=== PATIENT | male | born 1935 | race Caucasian/White ===

== ENCOUNTER 2018-04-16 10:17 | Inpatient (IN) | payer MEDICARE, OTHER ==
[~2018-04-16] VITALS: Ht 177.8 cm; Wt 80.6 kg
[2018-04-16] VITALS (21 sets, daily range): BP systolic 91–162; BP diastolic 47–89; BMI 25.8; BMI 26.9
--- NOTE | ~2018-04-16 | OP ---
PATIENT NAME: SHABANA RODRIGUEZ MEDICAL RECORD: [id number] :37 LOCATION:[facility] ADMISSION DATE:04/16/18 SURGEON: JIL ELLER MD DATE OF OPERATION: 04/16/2018 PROCEDURE: Left heart catheterization, selective coronary angiography, right femoral artery approach. CATHETERS: A 5-S[place] Arabian sheath, 5/4 left and right Rafi, 5/4 pig. The procedure was well tolerated. The patient was returned to the garcía, sheath removed. ExoSeal device placed. FINDINGS: Left ventriculography in 30-degree BAI view: Normal wall motion and normal systolic function. CORONARY ANATOMY: LEFT MAIN: Left main tapers to about 90% plus stenosis. This extends into the LAD and circumflex, both with ostial circumflex and ostial LAD of 90%. RIGHT CORONARY ARTERY: Dominant artery with a small caliber, has about 80% stenosis. IMPRESSION: Critical left main disease, urgent coronary artery bypass grafting. TRANSINT:[id number] Voice Confirmation ID: [id number] DOCUMENT ID: [id number] JIL ELLER MD at 1302 CC: [id number] DICTATION DATE: 04/16/18 1329 BELL ATTENDANT: 04/16/18 1510 [place] [address]
--- NOTE | ~2018-04-16 | MORECARE ---
CASE MANAGEMENT DISCHARGE SUMMARY PATIENT: SHABANA ANDRADE UNIT: [id number] ADM DATE: 04/16/18 AGE: 83 : 36 SEX: M ROOM/BED: [facility] AUTHOR: WALLY,DOC PHYSICIAN: REFERRING PHYSICIAN: JIL ELLER MD DATE OF SERVICE: 04/21/18 Discharge Plan Patient Name: SHABANA ANDRADE Facility: [facility]:Geff : 1935 Planned Disposition: Home Anticipated Discharge Date: Discharge Date: Expected LOS: Initial Reviewer: [email or web address] Initial Review Date: 04/16/2018 Generated: 04/21/18 6:25 pm Comments DCP- Discharge Planning Updated by [email or web address]: Veronica Parra on 04/21/18 4:[address] Patient Name: SHABANA ANDRADE Admission Status: Elective Accout number: [id number] Admission Date: 04-16-2018 : 1935 Admission Diagnosis:ATHSCL HEART DISEASE OF [place] CORONARY ARTERY W/O ANG Attending: JIL ELLER Current LOS: 5 Anticipated DC Date: Planned Disposition: Home Primary Insurance: MEDICARE A & B Discharge Planning Comments: CM met with patient at bedside. Patient plans on going home with his son at discharge. Patient denies any discharge needs at this time. Patient wants to make sure he gets discharge instructions on what he can or not do. CM will continue to follow and assist as needed with discharge planning / needs. Change House Attendant: Veronica Parra DCPIA - Discharge Planning Initial Assessment Updated by [email or web address]: Veronica Parra on 04/21/18 5:12 pm * Is the patient Alert and Oriented? Yes * How many steps to enter\exit or inside your home? * PCP [facility] * Pharmacy [facility] * Preadmission Environment Home Alone * ADLs Independent * Equipment None * List name and contact numbers for known caregivers / representatives who currently or will assist patient after discharge: Jose Francisco Lupe Jacquesnes * Verbal permission to speak to the caregivers and representatives has been obtained from the patient. N/A * Community resources currently utilized None * Additional services required to return to the preadmission environment? No * Can the patient safely return to the preadmission environment? Yes * Has this patient been hospitalized within the prior 30 days at any hospital? No Last DP export: 04/21/18 4:16 Patient Name: SHABANA ANDRADE Page 61412 at 1725 All edits/amendments must be made on the electronic document DICTATION DATE: 04/21/181723 EATING DISORDER SPECIALIST: DECLAN 04/21/181723 RPT#: [id number] DC DATE: STATUS: ADM IN [facility] [address] [place] [address] END OF REPORT
--- NOTE | ~2018-04-16 | HEMODYNAMI ---
PATIENT:SHABANA RODRIGUEZ MEDICAL RECORD: [id number] : 37 LOCATION:[facility] ADMISSION DATE: 04/16/18 Generatedon:04/16/201813:19 Patient name: SHABANA RODRIGUEZ Patient #: [id number] SSN: : Date of study: 04/16/2018 Page: Of Hemodynamic Procedure Report Patient Data Patient Demographics Procedure consent was obtained First Name: SHABANA Gender: Male Last Name: MICHAEL : 1935 Patient #: [id number] Age: 83 year(s) Race: Additional ID: [id number] Contact details [address]: [address] [place] [address] State: [place] City: [place] Zip code: [address] Past Medical History Allergies: No known allergies Admission Admission Data Admission Date: 04/16/2018 Admission Time: 10:17 Height (in.): 40 BSA: 1.3 (m2) Height (cm.): 101.6 BMI: 75.14 (kg/m2) Weight (lbs.): 171 Weight (kg.): 77.56 Lab Results Lab Result Date: 04/16/2018 Lab Result Time: 11:15 Biochemistry Name Units Result Min Max BUN mg/dl 18 --(---*)-- 7 18 Creatinine mg/dl 1.1 --(--*-)-- 0.6 1.3 CBC Name Units Result Min Max Hematocrit % 42.1 --(*---)-- 42 54 Hemoglobin g/dl 13.9 --(*---)-- 13.5 17.5 Procedure Procedure Types Cath Procedure Diagnostic Procedure [facility] w/Coronaries Procedure Description Procedure Date Procedure Date: 04/16/2018 Procedure Start Time: 13:04 Procedure End Time: 13:14 Procedure Staff Name Function Isaac Allred MD Performing Physician Pio Antunez RT Monitor Rona Serrano RT Scrub Jovanny Campos RN Nurse Buffie Cruz RN Desktop Specialist Procedure Data Cath Procedure Fluoroscopy Diagnostic fluoroscopy Total fluoroscopy Time: 1.2 time: 1.2 min min Diagnostic fluoroscopy Total fluoroscopy dose: 353 dose: 353 mGy mGy Contrast Material Contrast Material Type Amount (ml) Isovue 300 48 Entry Location Entry Primary Successful Side Size Upsize Upsize Entry Closure Succes sful Closure Location (Fr) 1 (Fr) 2 (Fr) Remarks Device Remarks Femoral Right 5 Fr Exoseal artery Estimated blood loss: 5 ml Diagnostic catheters Device Type Used For End Catheter Placement MULTIPACK JL 4.0 5Fr Procedure catheter MULTIPACK 3DRC 5Fr Procedure catheter MULTIPACK Pigtail 5 Fr Procedure catheter Procedure Complications No complications Procedure Medications Medication Administration Route Dosage 0.9% NaCl I.V. 100 ml/hr Oxygen etCO2 Nasal cannula 2 l/min Heparin Flush Bag added to field 2 bags (1000units/500ml NS) Lidocaine 2% added to field 20 Benadryl I.V. 50 mg Versed I.V. 2 mg Fentanyl I.V. 100 mcg Heparin Bolus I.V. 5000 units Heparin Drip I.V. drip 1000 units/hr (09731kfsqf/250 D5W) Hemodynamics Rest BSA: 1.3 (m2) HGB: 13.9 (g/dl) O2 Consumption: Estimated: 149.68 (ml/min) O2 Con sumption indexed: Estimated:115.14 (ml/min/m) Heart Rate: 73 (bpm) Pressure Samples Time Site Value (mmHg) Purpose Heart Use Rate(bpm) 13:09 LV 138/8,14 Snapshot 78 13:10 AO 130/59(89) Pullback 77 13:10 LV 138/11,15 Pullback 77 Gradients Valve Time Site 1 Site 2 Mean SEP/DFP Peak To Heart Use (mmHg) (sec/min) Peak Rate (mmHg) (bpm) Aortic 13:10 LV AO 9 21 8 77 138/11,15 130/59(89) Calculations Valve P-P Mean Valve Index Valve Source Name Gradient Area Flow (cm2) Aortic 8 9 8 9 Snapshots Pre Cath Intra NCS Post Cath Vital Signs Time Heart Resp SPO2 etCO2 NIBP Rhythm Pain Sedation Rate (ipm) (%) (mmHg) (mmHg) Status Level (bpm) 13:01:04 69 19 98 42.1 103/73(86) NSR 0 (11) 10(A) , No pain 13:05:57 71 18 99 42.1 124/79(92) NSR 0 (11) 10(A) , No pain 13:10:04 76 18 98 44.4 113/73(84) NSR 0 (11) 9(A) , No pain Medications Time Medication Route Dose Verified Delivered Reason No mila Effectiveness by by 12:54:56 0.9% NaCl I.V. 100 Jovanny Jovanny Per physician ml/hr Andres Campos RN RN 12:55:05 Oxygen etCO2 2 l/min Jovanny Jovanny Per physician Nasal Andres Campos cannula RN RN 12:55:20 Heparin Flush added 2 bags Jovanny Jovanny used for Bag to Andres Campos procedure (1000units/500ml field RN RN NS) 12:55:31 Lidocaine 2% added 20ml Jovanny Jovanny for local to vial Andres Campos anesthetic RN RN 13:02:55 Benadryl I.V. 50 mg Jovanny Jovanny Per physician Andres Campos RN RN 13:03:03 Versed I.V. 2 mg Jovanny Jovanny for sedation Andres Campos RN RN 13:03:10 Fentanyl I.V. 100 mcg Jovanny Jovanny for sedation Andres Campos RN RN 13:15:45 Heparin Bolus I.V. 5000 Jovanny Jovanny for units Pauigan Andres anticoagulation RN RN 13:16:23 Heparin Drip I.V. 1,000 Jovanny Jovanny for (78386hapcn/250 drip units/hr Lorigan Andres anticoagulation D5W) RN pipe fitter maintenance Log Time Note 12:33:58 Signed procedure consent form obtained from patient. 12:34:00 Diagnostic Cath status Elective 12:34:01 Time tracking: Regular hours (M-F 7:00 - 5:00) 12:34:04 Plan of Care:Hemodynamics will remain stable., Cardiac rhythm will remain stable., Comfort level will be maintained., Respiratory function will remain adequate., Patient/ family verbilizes understanding of procedure., Procedure tolerated without complication., Recovers from procedure without complications.. 12:35:15 H&P Date Dictated: 04/13/2018 Within 30 days and on chart., H&P Addendum completed by physician on day of procedure. (MUST COMPLETE FOR ALL OUTPATIENTS). 12:35:31 Patient Height : 40 inches 12:35:33 Patient Weight : 171 lbs 12:35:42 Patient allergic to No known allergies 12:39:06 Martha Cruz RN sent for patient. Start room use. 12:44:11 Patient received from Pre/Post Procedure Room to CCL 2 Alert and oriented. Tansferred to table in Supine position. 12:44:12 Warm blankets applied, and charles hugger turned on for patient comfort. 12:44:12 Correct patient and procedure confirmed by team. 12:44:13 ECG and BP/O2 sat monitors applied to patient. 12:54:56 0.9% NaCl 100 ml/hr I.V. was administered by Jovanny Campos RN; Per physician; 12:55:05 Oxygen 2 l/min etCO2 Nasal cannula was administered by Jovanny Campos RN; Per physician; 12:55:20 Heparin Flush Bag (1000units/500ml NS) 2 bags added to field was administered by Jovanny Campos RN; used for procedure; 12:55:31 Lidocaine 2% 20ml vial added to field was administered by Jovanny Campos RN; for local anesthetic; 13:00:04 Vital chart was started 13:00:05 Baseline sample Acquired. 13:00:08 Rhythm: sinus rhythm 13:00:09 Full Disclosure recording started 13:00:10 Pre-procedure instructions explained to patient. 13:00:10 Pre-op teaching completed and patient verbalized understanding. 13:00:12 Family in waiting room. 13:00:13 Patient NPO since Midnight. 13:00:15 Is the patient allergic to Iodine/contrast media? No. 13:00:16 Is patient on blood thinner?No 13:00:17 Patient diabetic? No. 13:00:19 Previous problem with sedation/anesthesia? No ? 13:00:20 Snore? No 13:00:21 Sleep apnea? No 13:00:21 Deviated septum? No 13:00:22 Opens mouth fully? Yes 13:00:22 Sticks out tongue? Yes 13:00:24 Airway obstruction? No ? 13:00:25 Dentures? No ? 13:00:27 Pre procedure: right dorsailis pedis pulse 2+ Normal; easily identifiable; not easily obliterated 13:00:32 IV patent on arrival in left forearm with 0.9% NaCl at KVO. 13:00:33 Lab results completed and on chart. 13::34 Lab Result : BUN 18 mg/dl 13::34 Lab Result : Hemoglobin 13.9 g/dl 13::34 Lab Result : Creatinine 1.1 mg/dl 13::34 Lab Result : Hematocrit 42.1 % 13:01:38 Right groin area was prepped with chlora-prep and draped in sterile fashion 13::39 Alarms reviewed by R. N. 13::39 Sharps counted by scrub and verified by R.N. 13:01:41 Use device set Femoral Dx 13:01:42 ACIST Syringe (19229) opened to sterile field. 13:01:42 Bag Decanter (2002S) opened to sterile field. 13:01:42 Medline Cath Pack ([id number]) opened to sterile field. 13:01:43 ACIST Hand Control (98829) opened to sterile field. 13:01:43 ACIST Manifold (97175) opened to sterile field. 13:01:44 Tegaderm 4 x 4 (1626W) opened to sterile field. 13:01:45 DIAGNOSTIC Multipack 5Fr catheter set (DT7412) opened to sterile field. 13:01:46 DIAGNOSTIC WIRE .035 260cm J wire (290008) opened to sterile field. 13:01:52 SHEATH 5FR [place] (DKF211) opened to sterile field. 13:01:59 Physician arrived 13::59 --------ALL STOP TIME OUT------ 13:01:59 Final Timeout: patient, procedure, and site verified with staff and physician. All members of the team are in agreement. 13:02:01 Right groin site verified by team. 13:02:03 Physical assessment completed. ASA score P 2 - A patient with mild systemic disease as per Isaac Allred MD. 13:02:05 Sedation plan: IV Moderate Sedation Medication:Versed, Fentanyl 13:02:49 Zero performed for pressure channel P1 13:02:55 Benadryl 50 mg I.V. was administered by Jovanny Campos RN; Per physician; 13:03:03 Versed 2 mg I.V. was administered by Jovanny Campos RN; for sedation; 13:03:10 Fentanyl 100 mcg I.V. was administered by Jovanny Campos RN; for sedation; 13:04:48 Procedure started. 13:04:51 Local anesthetic to right femoral artery with Lidocaine 2% by Isaac Allred MD.INITIAL ACCESS ONLY 13:04:57 A 5 Fr sheath was inserted into the Right Femoral artery 13:05:41 A MULTIPACK JL 4.0 5Fr catheter was advanced over the wire and used for Procedure. 13:07:05 Catheter exchanged over wire. 13:07:47 A MULTIPACK 3DRC 5Fr catheter was advanced over the wire and used for Procedure. 13:07:59 RCA angiography performed. 13:08:52 Catheter exchanged over wire. 13:08:57 A MULTIPACK Pigtail 5 Fr catheter was advanced over the wire and used for Procedure. 13:09:48 LV gram done using BAI 13:09:51 Injector settings: Ml/sec: 10, Volume: 20, 13:09:52 LV hemodynamics recorded. 13:09:58 EF : 60 % 13:10:06 Catheter removed. 13:10:16 EXOSEAL 5Fr (EX500) opened to sterile field. 13:10:25 Sheath removed intact; hemostasis achieved with Exoseal to the Right Femoral artery. 13:10:26 Procedure ended.(Physican Out) 13:10:51 Fluoroscopy time 01.20 minutes. 13:11:06 Fluoroscopy dose: 353 mGy 13:11:06 Flurop Dose total: 353 13:11:10 Contrast amount:Isovue 300 48ml. 13:11:11 Sharps counted by scrub and verified by R.N. 13:11:12 Insertion/operative site no bleeding no hematoma. 13:11:14 Post-op/insertion site Right Femoral artery dressed using a 4 x 4 and Tegaderm. 13:11:17 Post right femoral artery:stable, soft, clean and dry 13:11:19 Post Procedure Pulses reassessed and unchanged 13:11:22 Post-procedure physical assessment completed. ASA score P 2 - A patient with mild systemic disease as per Isaac Allred MD. 13:11:24 Post procedure rhythm: unchanged. 13:11:26 Estimated blood loss: 5 ml 13:11:27 Post procedure instruction explained to patient.Patient verbalizes understanding. 13:11:27 Patient needs reinforcement of post procedure teaching. 13:11:50 Procedure and supply charges have been captured, reviewed, submitted and are correct. 13:11:52 Procedure Complication : No complications 13:11:55 Vital chart was stopped 13:11:55 See physician's report for complete and final results. 13:11:56 Report given to Pre/Post Procedure Room. 13:11:58 Patient transfered to Pre/Post Procedure Room with Stretcher. 13:14:16 Procedure ended. 13:14:16 Full Disclosure recording stopped 13:14:20 End room use (Document Last) 13:15:45 Heparin Bolus 5000 units I.V. was administered by Jovanny Campos RN; for anticoagulation; 13:16:23 Heparin Drip (22504qmtjg/250 D5W) 1,000 units/hr I.V. drip was administered by Jovanny Campos RN; for anticoagulation; Device Usage Item Name Manufacture Quantity Catalog Hospital Part Current Minimal L ot# / Number Charge Number Stock Stock Serial# Code ACIST Acist 1 16546 194677 670697 168625 20 Syringe Medical (00930) Systems Inc Bag Microtek 1 299420 50561 838301 5 Decanter Medical Inc. () Medline Medline 1 [id number] 655548 71906 103034 5 Cath Pack ([id number]) ACIST Hand Acist 1 70046 155518 707370 733068 5 Control Medical (44555) Systems Inc ACIST Acist 1 32444 790566 296813 882538 5 Manifold Medical (48505) Systems Inc Tegaderm 4 3M 1 1626W 057069 777542 257408 5 x 4 (1626W) DIAGNOSTIC Cardinal 1 [id number] 682725 41513 688292 30 Multipack Health 5Fr catheter set (VW4769) DIAGNOSTIC St Ti 1 135723 832534 825296 616275 30 WIRE .035 260cm J wire (809247) SHEATH 5FR Terumo 1 DNB880 451880 903377 229000 40 [place] (QKZ066) MULTIPACK Cardinal 1 753271 5 JL 4.0 5Fr Health catheter MULTIPACK Cardinal 1 580972 5 3DRC 5Fr Health catheter MULTIPACK Cardinal 1 746301 5 Pigtail 5 Health Fr catheter EXOSEAL 5Fr Cardinal 1 EX500 856232 596420 781163 10 (EX500) Health Signature Audit [place] Stage Time Signature Unsigned Intra-Procedure 04/16/2018 Pio Antunez 1:19:00 PM RT(R) Signatures Monitor : Pio Antunez RT Signature : Date : Time : [place] [id number] [facility] [place] [address]
--- NOTE | ~2018-04-16 | MORECARE ---
CASE MANAGEMENT DISCHARGE SUMMARY PATIENT: SHABANA ANDRADE UNIT: [id number] ADM DATE: 04/16/18 AGE: 83 : 37 SEX: M ROOM/BED: [facility] AUTHOR: ASHLYN LO PHYSICIAN: REFERRING PHYSICIAN: JIL ELLER MD DATE OF SERVICE: 04/21/18 Discharge Plan Patient Name: SHABANA ANDRDAE [facility] 1935 Planned Disposition: Home Anticipated Discharge Date: Discharge Date: Expected LOS: Initial Reviewer: [email or web address] Initial Review Date: 04/16/2018 Generated: 04/21/18 6:16 pm DCPIA - Discharge Planning Initial Assessment Updated by [email or web address]: Veronica Parra on 04/21/18 5:12 pm * Is the patient Alert and Oriented? Yes * How many steps to enter\exit or inside your home? * PCP Dr Alejandro Gr [facility] * Pharmacy [facility] * Preadmission Environment Home Alone * ADLs Independent * Equipment None * List name and contact numbers for known caregivers / representatives who currently or will assist patient after discharge: Jose Francisco Jacquesnes Edwrad Andrade * Verbal permission to speak to the caregivers and representatives has been obtained from the patient. N/A * Community resources currently utilized None * Additional services required to return to the preadmission environment? No * Can the patient safely return to the preadmission environment? Yes * Has this patient been hospitalized within the prior 30 days at any hospital? No Patient Name: SHABANA ANDRADE Page 17387 at 1717 All edits/amendments must be made on the electronic document DICTATION DATE: 04/21/181715 INSIDE SALES TRAINER: DECLAN 04/21/181715 RPT#: [id number] DC DATE: STATUS: ADM IN [facility] [address] [place] [address] END OF REPORT
--- NOTE | ~2018-04-16 | OP ---
PATIENT NAME: SHABANA RODRIGUEZ MEDICAL RECORD: [id number] :37 [facility] ADMISSION DATE:04/16/18 SURGEON: DIEGO HOPSON MD DATE OF OPERATION: 04/16/2018 SURGEON: Diego Hopson MD FINAL FINISHER FORGING DIES: NAVDEEP Jean MD and KIMBERLY Ricardo OPERATION PERFORMED: Emergency coronary artery bypass graft times 2 (left internal mammary to LAD, reverse saphenous vein graft from aorta to obtuse marginal). PREOPERATIVE DIAGNOSES: Coronary artery disease with critical left main stenosis. POSTOPERATIVE DIAGNOSES: Coronary artery disease with critical left main stenosis. ANESTHESIA: General endotracheal anesthesia. ESTIMATED BLOOD LOSS: Total cardiopulmonary bypass with Cell Saver retransfusion. COMPLICATIONS: None. SPECIMENS: None. CONDITION: Stable. DISPOSITION: ICU. OPERATIVE FINDINGS: 1. Transesophageal echocardiography revealed good contractility with no significant valvular incompetence or stenosis. 2. The lower leg vein on the right was sclerotic and not usable. Therefore, additional incisions were made in the right thigh to obtain one good segment of vein, which was used to the obtuse marginal, which was a 2.0-mm vessel with diffuse disease. 3. The left internal mammary artery was a good conduit. There was evidence of previous rib fractures in the left chest. The LAD was a 1.75-mm vessel. 4. The patient cardiopulmonary bypass with low-dose dopamine. OPERATIVE INDICATION: Symptomatic critical left main stenosis. DESCRIPTION OF PROCEDURE: The patient was brought to the operating suite. General anesthesia was obtained. The patient was prepped and draped. Greater saphenous vein was harvested from the right lower extremity with bridging incision, separately divided with clips. Vessels ligated proximally and distally and removed. Side branches were tied or clipped. The leg was later closed in 2 layers. Median sternotomy incision was made. Subcutaneous tissues divided with electrocautery. The sternum was divided with a saw. Left hemisternum was elevated. Left pleural cavity was entered. Left internal mammary artery and OPERATIVE REPORT [id number] SHABANA RODRIGUEZ vein was taken to the pedicle graft. Sternal retractor was placed. Pericardium was opened. Heparin was given. Aorta was cannulated. Dual stage venous cannula was inserted. The internal mammary was clipped distally and made ready for anastomosis. Activated clotting time was appropriately elevated. The patient was placed in cardiopulmonary bypass. Sites for distal anastomoses were selected. The patient's temperature was allowed to drift downwardly. Aortic root vent cannula was placed. Crossclamp was placed. Cardioplegia given antegrade and this was repeated at one time including down the completed vein graft. Distal anastomosis was performed in a standard technique. Proximal anastomosis with single cross-clamp technique. Aortic root de-aired. Proximal anastomosis tied down. Flow restored. Proximal and distal anastomotic sites without bleeding. Vein graft and internal mammary lay appropriately. Good Doppler signals noted in both. The patient resumed a spontaneous rhythm, fully rewarmed, weaned from cardiopulmonary bypass and was stable. The patient was decannulated. Aortic cannulation site was oversewn. Protamine was given. Thorough irrigation was undertaken. The patient was hemodynamically stable. Drains were placed in the mediastinum, left pleural cavity. Ventricular pacing wires were placed. Pericardial fat was loosely reapproximated. Left chest was evacuated and irrigated. The internal mammary harvest site was inspected. A small section of rib was removed that had been dislodged at the old fracture site. Hemostasis was again ensured. Sternum was closed with wires. The patient was stable. Chest closed. Fascia was closed. Subcutaneous tissue was closed. Skin was closed. Dermabond was placed. The needle and sponge counts were reported as correct and the patient was taken to ICU in stable condition. TRANSINT:[id number] Voice Confirmation ID: [id number] DOCUMENT ID: [id number] DIEGO HOPSON MD at 0752 CC: JIL ELLER MD [id number] DICTATION DATE: 04/16/181849 MEDICAL FRONT DESK SPECIALIST: 04/16/18 2186 ADM IN [facility] [address] [place] [id number]
--- NOTE | ~2018-04-16 | MORECARE ---
CASE MANAGEMENT DISCHARGE SUMMARY PATIENT: SHABANA ANDRADE UNIT: [id number] ADM DATE: 04/16/18 AGE: 83 : [birth year] SEX: M ROOM/BED: [facility] AUTHOR: WALLY,DOC PHYSICIAN: REFERRING PHYSICIAN: JIL ELLER MD DATE OF SERVICE: 04/24/18 Discharge Plan Patient Name: SHABANA ANDRADE Facility: [facility]:[place] : 1935 Planned Disposition: Home Anticipated Discharge Date: Discharge Date: 04/24/2018 Expected LOS: Initial Reviewer: [email or web address] Initial Review Date: 04/16/2018 Generated: 04/24/18 7:45 pm Comments DCP- Discharge Planning Updated by [email or web address]: Veronica aPrra on 04/24/18 5:[address] LATE ENTRY 04/23/18 @ 1130 IMM EXPLAINED AND SERVED 04/23/18 @ 1125. PATIENT DENIES ANY NEEDS AT THIS TIME.CM will continue to follow and assist as needed with discharge planning / needs. DCP- Discharge Planning Updated by [email or web address]: Veronica Parra on 04/21/18 4:[address] Patient Name: SHABANA ANDRADE Admission Status: Elective Accout number: [id number] Admission Date: 04-16-2018 : 1935 Admission Diagnosis:ATHSCL HEART DISEASE OF [place] CORONARY ARTERY W/O ANG Attending: JIL ELLER Current LOS: 5 Anticipated DC Date: Planned Disposition: Home Primary Insurance: MEDICARE A & B Discharge Planning Comments: CM met with patient at bedside. Patient plans on going home with his son at discharge. Patient denies any discharge needs at this time. Patient wants to make sure he gets discharge instructions on what he can or not do. CM will continue to follow and assist as needed with discharge planning / needs. Cut Out Operator: Veronica Parra DCPIA - Discharge Planning Initial Assessment Updated by [email or web address]: Veronica Parra on 04/21/18 5:12 pm * Is the patient Alert and Oriented? Yes * How many steps to enter\exit or inside your home? * PCP [facility] * Pharmacy [facility] * Preadmission Environment Home Alone * ADLs Independent * Equipment None * List name and contact numbers for known caregivers / representatives who currently or will assist patient after discharge: Jose Francisco Andrade * Verbal permission to speak to the caregivers and representatives has been obtained from the patient. N/A * Community resources currently utilized None * Additional services required to return to the preadmission environment? No * Can the patient safely return to the preadmission environment? Yes * Has this patient been hospitalized within the prior 30 days at any hospital? No Coverage Notice Reviewer: [email or web address] Maile Parra Notice Issued Date-Time: 04/23/2018 11:25 Notice Type: IM Discharge Notice Notice Delivered To: Patient Relationship to Patient: Self Instructional Material Director Name: Delivery Method: HAND - Hand Delivered Sandy Days: Prior Verbal Notification: Recipient Understood Notice: Yes Recipient Signature: Yes Med Rec Note Co-signed by Attending: Coverage Notice Comment: Last DP export: 04/21/18 4:25 Patient Name: SHABANA ANDRADE Page [id number] at 1845 All edits/amendments must be made on the electronic document DICTATION DATE: 04/24/181844 BUSINESS SOLUTIONS DIRECTOR: DECLAN 04/24/181844 RPT#: [id number] DC DATE:04/24/18 STATUS: DIS IN [facility] [address] [place] [address] END OF REPORT
--- NOTE | ~2018-04-16 | TEE ---
PATIENT:SHABANA RODRIGUEZ MEDICAL RECORD: [id number] LOCATION:[place] [address] AGE OF PATIENT: 83 ADMISSION DATE: 04/16/18 SEX: M REFERRING PHYSICIAN: INTERPRETING PHYSICIAN: GEOVANI ISAACS MD TRANSESOPHAGEAL ECHOCARDIOGRAM Date: 04/16/18 ROBERTA CHARGE Y INDICATIONS: CABG PREMEDICATIONS: PATIENT'S RESPONSE PROCEDURE DOPPLER MEASUREMENTS: LVIT LA PA RA LVOT RVOT Asc. Ao AV Gradient Peak AV Mean AV Area MV Gradient Peak MV Mean MV Area INTERPRETATION: Doppler: 2-D: COLOR FLOW DOPPLER NORMAL SALINE STUDY: MISCELLANOUS: DIAGNOSIS: PLAN: Pest Control Service Technician:3 Dr. Powers Dope Mixer: Brad JOE COMMENTS: EMILIANA PATIENT DATE OF SERVICE: 04/16/2018 PROCEDURE: Transesophageal echo evaluation of valvular structures during bypass surgery. FINDINGS: 1. Left ventricular chamber size is within normal limits. Left ventricular systolic function is normal. Overall ejection fraction estimated at 55% to 60%. 2. Left atrium, right atrium, and right ventricle chamber sizes are within TRANSESOPHAGEAL ECHOCARDIOGRAM REPORT [id number] SHABANA RODRIGUEZ normal limits. 3. Valvular structures have normal structure and motion. 4. Doppler interrogation reveals trace mitral regurgitation, no other valvular insufficiency or stenosis. 5. No evidence of pericardial effusion or left ventricular thrombus. TRANSINT:[id number] Voice Confirmation ID: [id number] DOCUMENT ID: [id number] at 1031 CC: [id number] DICTATION DATE: 04/17/18 1200 REALTIME REPORTER: 04/17/18 2234 [place] [address]
[~2018-04-16 10:17] MED LIST: BAYER CHEWABLE81 MG PO; NEXIUM40 MG PO; VITAMIN B-12100 MCG PO; ZOCOR40 MG PO
[2018-04-16 11:39] LABS: BASOPHILS 0.8 % (0-2); HEMATOCRIT 42.1 % (42.0-54.0); HEMOGLOBIN 13.9 g/dL (13.5-17.5); IMMATURE GRANULOCYTES 0.1 % (0-5); LYMPHOCYTES 33.1 % (15-50); MCH 29.7 pg (26.0-34.0); MEAN PLATELET VOLUME 9.7 fL (7.4-10.4); PLATELET COUNT 234 10x3/uL (130-400); RBC 4.68 10x6/uL (4.20-6.10); RDW 14.3 % (11.5-14.5); WBC 7.8 10x3/uL (4.8-10.8)
[2018-04-16 11:52] LABS: ANION GAP 13.2 mmol/L (8-16); CALCIUM 8.9 mg/dL (8.5-10.1); CARBON DIOXIDE 27.9 mmol/L (21.0-32.0); CREATININE - SERUM 1.1 mg/dL (0.6-1.3); POTASSIUM - SERUM 4.1 mmol/L (3.5-5.1)
[2018-04-16 14:25] LABS: BASOPHILS 0.9 % (0-2); EOSINOPHILS 7.8 % (0-7); HEMATOCRIT 44.6 % (42.0-54.0); HEMOGLOBIN 14.3 g/dL (13.5-17.5); LYMPHOCYTES 27.4 % (15-50); MCH 29.2 pg (26.0-34.0); MCHC 32.1 g/dL (31.0-37.0); MEAN PLATELET VOLUME 9.8 fL (7.4-10.4); MONOCYTES 9.5 % (2-11); NEUTROPHILS 54.4 % (40-80); PLATELET COUNT 194 10x3/uL (130-400); RDW 14.4 % (11.5-14.5); WBC 6.6 10x3/uL (4.8-10.8)
[2018-04-16 14:26] LABS: ALKALINE PHOSPHATASE 75 U/L (46-116); ALT (SGPT) 21 U/L (10-68); BILIRUBIN - TOTAL 0.29 mg/dL (0.2-1.3); CALC OSMOLALITY 286 mosm/kg (275-300); CALCIUM 8.2 mg/dL (8.5-10.1); CARBON DIOXIDE 24.2 mmol/L (21.0-32.0); CHLORIDE - SERUM 108 mmol/L (98-107); CHOLESTEROL, TOTAL 216 mg/dL (0-200); CREATININE - SERUM 0.9 mg/dL (0.6-1.3); GLUCOSE 71 mg/dL (74-106); INR 1.09 (0.85-1.17); PHOSPHOROUS 3.5 mg/dL (2.5-4.9); POTASSIUM - SERUM 4.3 mmol/L (3.5-5.1); PROTEIN - SERUM 6.1 g/dL (6.4-8.2); PROTIME 13.7 SECONDS (11.6-15.0); SODIUM 144 mmol/L (136-145); T4 THYROXIN - FREE 0.94 ng/dL (0.76-1.46); THYROID STIMULATING HORMONE 1.54 uIU/mL (0.36-3.74); UREA NITROGEN 18 mg/dL (7-18); URIC ACID 5.2 mg/dL (2.6-7.2); eGFR NON AFRICAN AMERICAN 86 mL/min (90-120)
[2018-04-16 15:08] LABS: APTT > 200.0 SECONDS (22.8-39.4)
[2018-04-16 15:21] LABS: APPEARANCE CLEAR (CLEAR); BILIRUBIN NEGATIVE (NEGATIVE); COLOR YELLOW (YELLOW); GLUCOSE NEGATIVE (NEGATIVE); KETONE NEGATIVE (NEGATIVE); NITRITE NEGATIVE (NEGATIVE); PROTEIN NEGATIVE (NEGATIVE); SPECIFIC GRAVITY 1.015 (1.005-1.020); UROBILINOGEN NORMAL (NORMAL)
[2018-04-17] VITALS (96 sets, daily range): BP systolic 88–129; BP diastolic 43–84; Ht 177.8 cm; Wt 80.6 kg
[2018-04-17 06:18] LABS: MCH 29.1 pg (26.0-34.0); MCHC 32.6 g/dL (31.0-37.0); MCV 89.3 fL (80.0-100.0); MEAN PLATELET VOLUME 9.9 fL (7.4-10.4); RDW 14.4 % (11.5-14.5)
[2018-04-17 06:22] LABS: HEMATOCRIT 34.1 % (42.0-54.0); HEMOGLOBIN 11.1 g/dL (13.5-17.5); RBC 3.82 10x6/uL (4.20-6.10); WBC 11.2 10x3/uL (4.8-10.8)
[2018-04-17 06:36] LABS: ALBUMIN 2.5 g/dL (3.4-5.0); ALKALINE PHOSPHATASE 44 U/L (46-116); BILIRUBIN - TOTAL 0.45 mg/dL (0.2-1.3); CARBON DIOXIDE 24.4 mmol/L (21.0-32.0); CHLORIDE - SERUM 108 mmol/L (98-107); POTASSIUM - SERUM 4.5 mmol/L (3.5-5.1); PROTEIN - SERUM 4.9 g/dL (6.4-8.2); SODIUM 141 mmol/L (136-145); UREA NITROGEN 15 mg/dL (7-18); eGFR NON AFRICAN AMERICAN 76 mL/min (90-120)
[2018-04-17 06:38] LABS: ALT (SGPT) 15 U/L (10-68); CALC OSMOLALITY 283 mosm/kg (275-300); GLUCOSE 140 mg/dL (74-106)
[2018-04-18] VITALS (80 sets, daily range): BP systolic 72–127; BP diastolic 44–69
[2018-04-18 06:18] LABS: MCHC 32.7 g/dL (31.0-37.0); MCV 88.6 fL (80.0-100.0); MEAN PLATELET VOLUME 9.5 fL (7.4-10.4); RDW 14.6 % (11.5-14.5)
[2018-04-18 06:22] LABS: HEMATOCRIT 25.7 % (42.0-54.0); HEMOGLOBIN 8.4 g/dL (13.5-17.5); RBC 2.9 10x6/uL (4.20-6.10); WBC 7.9 10x3/uL (4.8-10.8)
[2018-04-18 06:41] LABS: ALKALINE PHOSPHATASE 39 U/L (46-116); ALT (SGPT) 14 U/L (10-68); BILIRUBIN - TOTAL 0.78 mg/dL (0.2-1.3); CALC OSMOLALITY 281 mosm/kg (275-300); CALCIUM 8.3 mg/dL (8.5-10.1); CARBON DIOXIDE 25.9 mmol/L (21.0-32.0); CHLORIDE - SERUM 107 mmol/L (98-107); CREATININE - SERUM 0.9 mg/dL (0.6-1.3); GLUCOSE 128 mg/dL (74-106); POTASSIUM - SERUM 3.9 mmol/L (3.5-5.1); PROTEIN - SERUM 5.8 g/dL (6.4-8.2); SODIUM 140 mmol/L (136-145); UREA NITROGEN 14 mg/dL (7-18); eGFR NON AFRICAN AMERICAN 86 mL/min (90-120)
[2018-04-18 06:54] LABS: ALBUMIN 3.4 g/dL (3.4-5.0)
[2018-04-19] VITALS (80 sets, daily range): BP systolic 82–126; BP diastolic 44–90
[2018-04-19 06:27] LABS: HEMATOCRIT 27.4 % (42.0-54.0); HEMOGLOBIN 8.9 g/dL (13.5-17.5); MCH 28.8 pg (26.0-34.0); MCHC 32.5 g/dL (31.0-37.0); MCV 88.7 fL (80.0-100.0); MEAN PLATELET VOLUME 9.3 fL (7.4-10.4); RBC 3.09 10x6/uL (4.20-6.10); RDW 14.8 % (11.5-14.5); WBC 9.3 10x3/uL (4.8-10.8)
[2018-04-19 06:55] LABS: ALBUMIN 2.9 g/dL (3.4-5.0); ALKALINE PHOSPHATASE 48 U/L (46-116); ALT (SGPT) 14 U/L (10-68); BILIRUBIN - TOTAL 0.65 mg/dL (0.2-1.3); CALC OSMOLALITY 277 mosm/kg (275-300); CALCIUM 8.2 mg/dL (8.5-10.1); CARBON DIOXIDE 25.8 mmol/L (21.0-32.0); CHLORIDE - SERUM 106 mmol/L (98-107); CREATININE - SERUM 0.9 mg/dL (0.6-1.3); GLUCOSE 100 mg/dL (74-106); POTASSIUM - SERUM 3.7 mmol/L (3.5-5.1); PROTEIN - SERUM 5.9 g/dL (6.4-8.2); SODIUM 140 mmol/L (136-145); UREA NITROGEN 11 mg/dL (7-18); eGFR NON AFRICAN AMERICAN 86 mL/min (90-120)
[2018-04-20] VITALS (90 sets, daily range): BP systolic 79–138; BP diastolic 40–76
[2018-04-20 06:29] LABS: HEMATOCRIT 24.7 % (42.0-54.0); HEMOGLOBIN 7.9 g/dL (13.5-17.5); MCH 28.3 pg (26.0-34.0); MCV 88.5 fL (80.0-100.0); MEAN PLATELET VOLUME 9.7 fL (7.4-10.4); RBC 2.79 10x6/uL (4.20-6.10); RDW 14.7 % (11.5-14.5); WBC 7.5 10x3/uL (4.8-10.8)
[2018-04-20 06:58] LABS: ALBUMIN 3.2 g/dL (3.4-5.0); ALKALINE PHOSPHATASE 43 U/L (46-116); ALT (SGPT) 11 U/L (10-68); BILIRUBIN - TOTAL 0.77 mg/dL (0.2-1.3); CALC OSMOLALITY 281 mosm/kg (275-300); CALCIUM 8.3 mg/dL (8.5-10.1); CARBON DIOXIDE 23.3 mmol/L (21.0-32.0); CHLORIDE - SERUM 108 mmol/L (98-107); CREATININE - SERUM 0.9 mg/dL (0.6-1.3); GLUCOSE 99 mg/dL (74-106); POTASSIUM - SERUM 3.4 mmol/L (3.5-5.1); PROTEIN - SERUM 5.9 g/dL (6.4-8.2); SODIUM 142 mmol/L (136-145); UREA NITROGEN 9 mg/dL (7-18); eGFR NON AFRICAN AMERICAN 86 mL/min (90-120)
[2018-04-21] VITALS (58 sets, daily range): BP systolic 83–124; BP diastolic 46–75
[2018-04-21 07:49] LABS: BASOPHILS 0.9 % (0-2); EOSINOPHILS 8.2 % (0-7); IMMATURE GRANULOCYTES 0.1 % (0-5); LYMPHOCYTES 19.9 % (15-50); MCH 28.7 pg (26.0-34.0); MCV 89.6 fL (80.0-100.0); MEAN PLATELET VOLUME 9.3 fL (7.4-10.4); MONOCYTES 8.3 % (2-11); NEUTROPHILS 62.6 % (40-80); RDW 14.8 % (11.5-14.5); WBC 8.1 10x3/uL (4.8-10.8)
[2018-04-21 07:53] LABS: HEMOGLOBIN 9.6 g/dL (13.5-17.5); PLATELET COUNT 262 10x3/uL (130-400); RBC 3.35 10x6/uL (4.20-6.10)
[2018-04-21 08:03] LABS: ALBUMIN 3.2 g/dL (3.4-5.0); ANION GAP 13.6 mmol/L (8-16); BILIRUBIN - TOTAL 0.71 mg/dL (0.2-1.3); CALCIUM 8.3 mg/dL (8.5-10.1); CREATININE - SERUM 1.1 mg/dL (0.6-1.3); POTASSIUM - SERUM 3.6 mmol/L (3.5-5.1); PROTEIN - SERUM 6.6 g/dL (6.4-8.2)
[2018-04-22] VITALS (24 sets, daily range): BP systolic 81–140; BP diastolic 44–83
[2018-04-22 06:31] LABS: BASOPHILS 0.7 % (0-2); EOSINOPHILS 8.2 % (0-7); HEMATOCRIT 28.8 % (42.0-54.0); HEMOGLOBIN 9.2 g/dL (13.5-17.5); IMMATURE GRANULOCYTES 0.2 % (0-5); LYMPHOCYTES 19.2 % (15-50); MCH 28.7 pg (26.0-34.0); MCHC 31.9 g/dL (31.0-37.0); MCV 89.7 fL (80.0-100.0); MEAN PLATELET VOLUME 9.3 fL (7.4-10.4); MONOCYTES 9.1 % (2-11); NEUTROPHILS 62.6 % (40-80); PLATELET COUNT 238 10x3/uL (130-400); RBC 3.21 10x6/uL (4.20-6.10); WBC 6.1 10x3/uL (4.8-10.8)
[2018-04-22 06:49] LABS: ALBUMIN 3.9 g/dL (3.4-5.0); ALKALINE PHOSPHATASE 53 U/L (46-116); ALT (SGPT) 14 U/L (10-68); BILIRUBIN - TOTAL 0.72 mg/dL (0.2-1.3); CARBON DIOXIDE 25.3 mmol/L (21.0-32.0); CHLORIDE - SERUM 105 mmol/L (98-107); GLUCOSE 107 mg/dL (74-106); POTASSIUM - SERUM 3.8 mmol/L (3.5-5.1); PROTEIN - SERUM 6.8 g/dL (6.4-8.2); SODIUM 139 mmol/L (136-145); eGFR NON AFRICAN AMERICAN 76 mL/min (90-120)
[2018-04-22 06:51] LABS: CALC OSMOLALITY 279 mosm/kg (275-300); UREA NITROGEN 18 mg/dL (7-18)
[2018-04-23] VITALS (24 sets, daily range): BP systolic 91–149; BP diastolic 42–99
[2018-04-23 06:47] LABS: BASOPHILS 0.3 % (0-2); EOSINOPHILS 6.9 % (0-7); HEMATOCRIT 28.4 % (42.0-54.0); HEMOGLOBIN 9.1 g/dL (13.5-17.5); IMMATURE GRANULOCYTES 0.1 % (0-5); MCH 28.8 pg (26.0-34.0); MCV 89.9 fL (80.0-100.0); MEAN PLATELET VOLUME 9.3 fL (7.4-10.4); MONOCYTES 8.7 % (2-11); PLATELET COUNT 279 10x3/uL (130-400); RBC 3.16 10x6/uL (4.20-6.10); RDW 15.1 % (11.5-14.5); WBC 6.7 10x3/uL (4.8-10.8)
[2018-04-23 06:51] LABS: ALBUMIN 3.2 g/dL (3.4-5.0); BILIRUBIN - TOTAL 0.6 mg/dL (0.2-1.3); CALCIUM 8.3 mg/dL (8.5-10.1); CREATININE - SERUM 1.1 mg/dL (0.6-1.3); PROTEIN - SERUM 6.3 g/dL (6.4-8.2)
[2018-04-23 06:52] LABS: ANION GAP 12.7 mmol/L (8-16); POTASSIUM - SERUM 4.7 mmol/L (3.5-5.1)
[2018-04-24] VITALS (11 sets, daily range): BP systolic 102–149; BP diastolic 46–62
[2018-04-24 06:21] LABS: HEMATOCRIT 28.1 % (42.0-54.0); MCH 28.7 pg (26.0-34.0); MCV 89.5 fL (80.0-100.0); MEAN PLATELET VOLUME 9.4 fL (7.4-10.4); RBC 3.14 10x6/uL (4.20-6.10); RDW 15.2 % (11.5-14.5); WBC 7.5 10x3/uL (4.8-10.8)
[2018-04-24 06:30] LABS: ALBUMIN 3.2 g/dL (3.4-5.0); ANION GAP 13.8 mmol/L (8-16); BILIRUBIN - TOTAL 0.48 mg/dL (0.2-1.3); CALCIUM 8.3 mg/dL (8.5-10.1); CARBON DIOXIDE 24.9 mmol/L (21.0-32.0); CREATININE - SERUM 1.1 mg/dL (0.6-1.3); POTASSIUM - SERUM 4.7 mmol/L (3.5-5.1); PROTEIN - SERUM 5.9 g/dL (6.4-8.2)
[2018-04-24] MEDS ORDERED: TOPROL XL25 MG PO (10:44)
[2018-04-24] MEDS ORDERED: ASPIRIN EC81 M1 PO (10:45)
[2018-04-24] MEDS ORDERED: COLACE100 MG PO (10:46)
[2018-04-24] MEDS ORDERED: ACETAMINOPHEN325 MG PO (10:47)
== END 2018-04-24 15:03 | disposition home or self-care (01) | DRG 234 ==
LOC: D.CATH 10:17 → EDSTATUS 13:00 → D.SDCHOLD 13:35 → D.CVICU 13:35
PROVIDERS: Internal Medicine Cardiovascular Disease; Internal Medicine Interventional Cardiology; Thoracic Surgery (Cardiothoracic Vascular Surgery)
PROC: B2111ZZ Fluoroscopy of Multiple Coronary Arteries using Low Osmolar Contrast (ICD-10-PCS; 2018-04-16)
PROC: 021009W Bypass Coronary Artery, One Artery from Aorta with Autologous Venous Tissue, Open Approach (ICD-10-PCS; 2018-04-16)
PROC: 06BP0ZZ Excision of Right Saphenous Vein, Open Approach (ICD-10-PCS; 2018-04-16)
PROC: B24BZZ4 Ultrasonography of Heart with Aorta, Transesophageal (ICD-10-PCS; 2018-04-16)
PROC: 5A1221Z Performance of Cardiac Output, Continuous (ICD-10-PCS; 2018-04-16)
PROC: B2151ZZ Fluoroscopy of Left Heart using Low Osmolar Contrast (ICD-10-PCS; 2018-04-16)
PROC: 4A023N7 Measurement of Cardiac Sampling and Pressure, Left Heart, Percutaneous Approach (ICD-10-PCS; 2018-04-16)
PROC: 02100Z9 Bypass Coronary Artery, One Artery from Left Internal Mammary, Open Approach (ICD-10-PCS; principal; 2018-04-16 13:00)
DX: I25.10 Atherosclerotic heart disease of native coronary artery without angina pectoris (principal); D62 Acute posthemorrhagic anemia; I10 Essential (primary) hypertension; K21.9 Gastro-esophageal reflux disease without esophagitis; J44.9 Chronic obstructive pulmonary disease, unspecified; E88.09 Other disorders of plasma-protein metabolism, not elsewhere classified; Z87.891 Personal history of nicotine dependence; I48.91 Unspecified atrial fibrillation; R00.0 Tachycardia, unspecified

== ENCOUNTER → 2018-05-13 09:35 | Outpatient (CLI) | payer MEDICARE, OTHER ==
[2018-04-17 13:29] VITALS: BMI 26.9
[~2018-05-13 09:35] MED LIST changes: +ACETAMINOPHEN325 MG PO; +ASPIRIN EC81 M1 PO; +COLACE100 MG PO; +TOPROL XL25 MG PO
[2018-05-13 10:33] LABS: HEMOGLOBIN 12.1 g/dL (13.5-17.5); MCH 28.5 pg (26.0-34.0); MCHC 31.8 g/dL (31.0-37.0); MCV 89.4 fL (80.0-100.0); MEAN PLATELET VOLUME 9.5 fL (7.4-10.4); RBC 4.25 10x6/uL (4.20-6.10); RDW 14.4 % (11.5-14.5); WBC 10.2 10x3/uL (4.8-10.8)
[2018-05-13 10:50] LABS: ALBUMIN 3.5 g/dL (3.4-5.0); BILIRUBIN - TOTAL 0.31 mg/dL (0.2-1.3); CALCIUM 8.5 mg/dL (8.5-10.1); CARBON DIOXIDE 26.4 mmol/L (21.0-32.0); CREATININE - SERUM 1.2 mg/dL (0.6-1.3); PROTEIN - SERUM 7.7 g/dL (6.4-8.2)
[2018-05-13 10:55] LABS: ANION GAP 14.2 mmol/L (8-16); POTASSIUM - SERUM 3.6 mmol/L (3.5-5.1)
== END | disposition home or self-care (01) ==
LOC: D.LAB 09:35
PROVIDERS: Thoracic Surgery (Cardiothoracic Vascular Surgery)
DX: D64.9 Anemia, unspecified (principal); J91.8 Pleural effusion in other conditions classified elsewhere

== ENCOUNTER → 2018-12-15 09:36 | Outpatient (CLI) | payer MEDICARE, OTHER ==
[2018-04-17 13:29] VITALS: BMI 26.9
--- NOTE | 2018-12-23 14:03 | EC ---
PATIENT:SHABANA RODRIGUEZ DATE OF SERVICE: 12/15/18 SEX: M MEDICAL RECORD: [id number] DATE OF : 37 [facility] AGE OF PATIENT: 83 ADMISSION DATE: 12/15/18 REFERRING PHYSICIAN: INTERPRETING PHYSICIAN: JIL ELLER MD ECHOCARDIOGRAM REPORT ECHO CHARGES 4 ECHO COMPLETE Date: 12/15/18 CLINICAL DIAGNOSIS: MURMUR H/O CAD/A-FIB ECHOCARDIOGRAPHIC MEASUREMENTS (adult normal given) AC root (d.<3.7cm) 3.0 cm LV Septum d (<1.2 cm> 1.0 cm Valve Excursion 1.7 cm LV Septum (systole) 1.7 cm Left Atria (s.<4.0cm> 3.8 cm LVPW d(<1.2cm) 1.2 cm RV (d.<2.3cm) 2.5 cm LVPW (sytole) 1.6 cm LV diastole(<5.6CM) 5.1 cm MV E-F(>70mm/sec) cm LV systole 3.6 cm LVOT Diameter 1.7 cm MV exc.(>10mm) cm Est.ejection fraction (50-75%) % DOPPLER: LVIT cm/sec A 59.0 cm/sec E 73.0 cm/sec LA cm/sec RVSP 35.0 mmHg LVOT 104 cm/sec AOP1/2T m/s Asc. Ao 138 cm/sec RVOT 60.0 cm/sec RA cm/sec PA 80.0 cm/sec AV Gradient Peak 7.6 mmHg AV Mean 4.3 mmHg AV Area 1.8 cm MV Gradient Peak 4.0 mmHg MV Mean 1.3 mmHg MV Area cm COMMENTS: OP - HC Premium Note Interest Calculator Clerk: 1 JONNY PAINT [place]OCK Power Reactor Operator: 3 Dr. Powers TAPE# PACS Pericardial Effusion N DATE OF SERVICE: Adequate 2D echo, color flow, spectral Doppler, and M-Mode. No LVH. LV internal dimension is normal. Wall motion is normal. EF is greater than or equal to 55%. Aortic valve is tricuspid. No evidence of stenosis by Doppler interrogation. Left atrium normal at 3.8 cm. Mitral valve shows no prolapse. Mild MR. Right-sided chambers grossly normal. Mild TR. TRANSINT:[id number] Voice Confirmation ID: [id number] DOCUMENT ID: [id number] ECHOCARDIOGRAM REPORT [id number] SHABANA RODRIGUEZ,JIL Garrison MD at 1403 CC: [id number] DICTATION DATE: 12/21/18 1246 LEAD REFINER: 12/21/18 1256 DEP CLI 12/15/18 [place] [id number] [place] [id number]
== END | disposition home or self-care (01) ==
LOC: D.HCCARDIO 09:36
PROVIDERS: ATTEND Internal Medicine Interventional Cardiology
DX: R01.1 Cardiac murmur, unspecified (principal)

== ENCOUNTER → 2020-01-04 07:53 | Outpatient (CLI) | payer MEDICARE, OTHER ==
[2018-04-17 13:29] VITALS: BMI 26.9
--- NOTE | 2020-01-06 15:26 | EC ---
PATIENT:SHABANA RODRIGUEZ DATE OF SERVICE: 01/04/20 SEX: M MEDICAL RECORD: [id number] DATE OF : [birth year] [facility] AGE OF PATIENT: 84 ADMISSION DATE: 01/04/20 REFERRING PHYSICIAN: INTERPRETING PHYSICIAN: JIL ELLER MD ECHOCARDIOGRAM REPORT ECHO CHARGES 4 ECHO COMPLETE Date: 01/04/20 CLINICAL DIAGNOSIS: CAD/ASSESS EF HX OF CABG ECHOCARDIOGRAPHIC MEASUREMENTS (adult normal given) AC root (d.<3.7cm) 3.2 cm LV Septum d (<1.2 cm> 1.1 cm Valve Excursion 1.3 cm LV Septum (systole) 1.4 cm Left Atria (s.<4.0cm> 3.5 cm LVPW d(<1.2cm) 1.2 cm RV (d.<2.3cm) 3.5 cm LVPW (sytole) 1.6 cm LV diastole(<5.6CM) 4.8 cm MV E-F(>70mm/sec) cm LV systole 3.7 cm LVOT Diameter 1.7 cm MV exc.(>10mm) 0.90 cm Est.ejection fraction (50-75%) % DOPPLER: LVIT cm/sec A 84.0 cm/sec E 74.0 cm/sec LA cm/sec RVSP 19 mmHg LVOT 103 cm/sec AOP1/2T m/s Asc. Ao 128 cm/sec RVOT 50 cm/sec RA cm/sec PA 84 cm/sec AV Gradient Peak 6.50 mmHg AV Mean 3.26 mmHg AV Area 1.9 cm MV Gradient Peak 3.46 mmHg MV Mean 1.28 mmHg MV Area cm COMMENTS: Manufacturing Quality Manager: 2 KATHY JOE Pad Extractor Tender: 3 Dr. Powers TAPE# PACS Pericardial Effusion N DATE OF SERVICE: Adequate 2D, color flow imaging, spectral Doppler and M-mode. No LVH. LV internal dimensions are normal. Wall motion is normal. EF is greater than or equal to 55%. Aortic valve is tricuspid. No evidence of stenosis by Doppler interrogation. Left atrium is normal. Mitral valve showed no prolapse. Trace MR. Right-sided chambers are grossly normal. Mild TR. TRANSINT:[id number] Voice Confirmation ID: [id number] DOCUMENT ID: [id number] ECHOCARDIOGRAM REPORT [id number] SHABANA RODRIGUEZ,JIL Garrison MD at 1526 CC: [id number] DICTATION DATE: 01/04/20 1556 CHIEF TALENT OFFICER: 01/04/20 2303 DEP CLI 01/04/20 [facility] [address] [place] [address]
== END | disposition home or self-care (01) ==
LOC: D.HCCECHO 07:53
PROVIDERS: ATTEND Internal Medicine Interventional Cardiology
DX: I25.10 Atherosclerotic heart disease of native coronary artery without angina pectoris (principal)